=== PATIENT | female | born 1960 | race Caucasian/White ===

== ENCOUNTER 2023-12-21 01:35 | Day surgery (SDC) | payer MEDICARE, SELFPAY ==
--- NOTE | 2023-12-11 09:04 | PC.NURSE ---
Report to the Outpatient Waiting Room, entrance under the green pavilion located off [facility], at time __0845 on date _12/21/23 . Planned Procedure Time: __1045 . Time changes happen often and if your time is changed the preop area will call you the afternoon before. - You and your visitor will be asked to self-screen and do not enter if you have any COVID symptoms. - A mask is optional within the hospital at this time. Patients may have clear liquids (water, carbonated beverages, clear teas, apple juice) until 3 hours prior to surgery ( 0745)with a maximum of 20 ounces. - No food from midnight until time of surgery - Infants may have breast milk until 4 hours before surgery, infant formula 6 hours prior to surgery. - Children will be allowed to drink immediately following surgery. If applicable, please bring a bottle or sippy cup to assist with drinking. Juice, water, soda, and popsicles are readily available. For infants on formula, please bring formula the day of surgery. Pacifiers are allowed. Take the following medications with a SIP of water the morning of surgery: NONE DO NOT STOP ANY OF YOUR OTHER PRESCRIPTION MEDICATIONS PRIOR TO SURGERY ?EXCEPT THE FOLLOWING Medications to discontinue per physician ___HOLD RYBELSUS 10 DAYS PRE OP PER ANESTHESIA LAST DOSE 12/10/23 Please no make-up, nail romanian, hairspray, perfume, deodorant, or body powder the day of surgery. No jewelry (including any body piercings) or valuables the day of surgery, leave them at home. Please take a shower or bath the night before, or the morning of, surgery with an antibacterial soap. Wear comfortable, loose fitting clothing. Children are encouraged to wear pajamas. - Jewelry must be removed prior to entering the operating room. Rings and piercings that are not removed may be cut off. - The hospital will not accept responsibility for valuables. - Please leave all valuables, including medications, at home the day of surgery. If you are going home after surgery, a licensed motorcoach driver must drive you home. - NO public transportation without another adult if you receive anesthesia. - We recommend that an adult stay with you for 24 hours following discharge. - We also recommend that you do not drive, make important decision, drink alcoholic beverages, or take any drugs that were not prescribed by your health care provider for at least 24 hours after your discharge time. Follow any additional instructions given to you from your surgeon. If you or anyone in your household have experienced Covid symptoms in the past week, please notify your surgeon or the nurse liaison at the phone number below for possible testing. Telephone instructions given to __PATIENT and asked if any additional questions and then verbalized understanding. Patient advised to call surgeon office or pre surgery nurse liaison [phone] if any additional questions.
[2023-12-11 09:09] VITALS: BMI 33.6
[2023-12-21 09:18] VITALS: BP 138/68; PULSE 50; RESP 14; TEMP 36.6; O2SAT 100
--- NOTE | 2023-12-21 09:18 | P.HP_ITS ---
History of Present Illness History of Present Illness Consent: Risks, benefits, and alternatives have been discussed and questions answered. Patient agrees to proceed with procedure. Chief complaint: Post Menopausal Bleeding Narrative: Alanis Wagoner is a 63 year old female With several episodes of vaginal bleeding over the past 5 months. Pelvic ultrasound revealed a thickened endometrium 17mm. It was recommended to undergo D&C hysteroscopy for further ev aluation. Risks of infection, bleeding perforation, and possible pathology are discussed. The patient voices understanding and agrees to proceed. Review of Systems Review of Systems: not repeated day of surgery; patient states no changes in status PMFSH Past Medical History Medical History (Updated 12/21/23 @ 09:21 by Eliza Victor MD) Diabetes (normal spontaneous vaginal delivery) x3 Surgical History Surgical History (Updated 12/21/23 @ 09:21 by Eliza Victor MD) History of back surgery History of laparoscopic cholecystectomy Hx of left breast biopsy Social History Social History Smoking status: Never smoker Living arrangements: with family Spiritual care concerns: No Meds Home Medications and Allergies Home Medications Medication Instructions Recorded Confirmed Type oxybutynin chloride 10 mg 10 mg PO DAILY 12/11/23 12/11/23 History tablet,extended release 24 hr semaglutide 3 mg tablet (Rybelsus) 3 mg PO DAILY WEIGHT LOSS 12/11/23 12/11/23 History Allergies Allergy/AdvReac Type Severity Reaction Status Date / Time No Known Allergies Allergy Verified 12/21/23 08:45 Exam Const: General: healthy appearing and alert Orientation/consciousness: patient oriented x3 Resp: Effort & Inspection: normal respiratory effort GI: GI Palp: Yes Soft to palpation, No Tenderness to palpation present (GI) and No Palpable mass present : External Female Exam: normal external appearance Speculum Exam - Vagina: normal appearance of the vagina and normal vaginal discharge Speculum Exam - Cervix: normal appearance of the cervix Bimanual exam- vagina & uterus: uterine size normal and consistency normal Bimanual Exam- Adnexa, other: normal adnexae and No adnexal tenderness Neuro: General: patient oriented x3 Assessment and Plan Assessment and plan (1) Post-menopausal bleeding: Code(s): N95.0 - Postmenopausal bleeding Status: Acute Assessment and Plan: plan to proceed with D&C hysteroscopy
--- NOTE | 2023-12-21 09:18 | WPDHPUPDATE1 ---
History and Physical Update Update Date/Time: 12/21/23 09:18 History and Physical has been reviewed, including an updated exam of the patient. There are NO changes in the patient's condition. Risks, benefits, and alternatives have been discussed and questions answered. Patient agrees to proceed with procedure.
[2023-12-21] MEDS: ACETAMINOPHEN 500 MG TABLET 1000 MG PO (09:21)
[2023-12-21] MEDS: LACTATED RINGERS 1,000 ML 30 ML IV CONT ×2 (09:22→11:22)
--- NOTE | 2023-12-21 09:28 | P.PNAN_ITS ---
Anes - Initial Pre Proc Eval Procedure: Operation Date: 12/21/23 10:30 Proposed Procedures p Hysteroscopy Dilation and Curettage - Eliza Victor MD Date/Time: 12/21/23 09:28 Surgeon: Eliza Victor MD Pre Op Diagnosis: Post Menopausal Bleeding Patient Data Age: 63 Gender: F Height: 1.6 m Weight: 87.9 kg Last Vital Signs Temp 36.6 C 12/21/23 09:18 Pulse 50 L 12/21/23 09:18 Resp 14 12/21/23 09:18 BP 138/68 12/21/23 09:18 Pulse Ox 100 12/21/23 09:18 O2 Del Method Room Air 12/21/23 09:18 Allergies Allergy/AdvReac Type Severity Reaction Status Date / Time No Known Allergies Allergy Verified 12/21/23 08:45 Home Medications Medication Instructions Recorded Confirmed Type oxybutynin chloride 10 mg 10 mg PO DAILY 12/11/23 12/11/23 History tablet,extended release 24 hr semaglutide 3 mg tablet (Rybelsus) 3 mg PO DAILY WEIGHT LOSS 12/11/23 12/11/23 History Patient hx anesthesia problems: none Family hx anesthesia problems: none Results Review: All pre-operative results and documents have been reviewed as part of the pre- operative evaluation. PMFSH Past Medical History Medical History Diabetes (normal spontaneous vaginal delivery) x3 Surgical History Surgical History History of back surgery History of laparoscopic cholecystectomy Hx of left breast biopsy Social History Social History Smoking status: Never smoker Living arrangements: with family Spiritual care concerns: No Anes - Eval Final PreProcedure Day of Procedure 12/21/23 09:28 Patient weight: obese Heart: regular rate and rhythm Lungs: clear to auscultation Airway: Mallampati scale class II Neurological: alert and oriented Last oral intake: >/= 8 hours ASA classification: III Emergent: no Anesthetic plan: proceed Anesthesia type and monitoring: general GIVS and standard monitoring Results Review: All pre-operative results and documents have been reviewed as part of the pre- operative evaluation. Informed Consent: The patient's anesthetic plan and its attendant risks and benefits were discussed with the patient/family/POA. Questions were solicited and answers provided to the satisfaction of the patient/family/POA.
[2023-12-21 10:24] VITALS: BP 114/46; PULSE 57; RESP 16; O2SAT 95
--- NOTE | 2023-12-21 10:25 | W.PM.PROC2 ---
Procedure Note - Detailed Date of Procedure 12/21/23 Pre-op Diagnosis Post Menopausal Bleeding Post-op Diagnosis Same Procedure Performed D&C hysteroscopy with resection of multiple polyps Surgeon Eliza Victor MD Anesthesia MAC Findings uterus sounds to 8cm; multiple endometrial polyps are present Description of Procedure The patient is taken to the operating room and placed under anesthesia in the dorsal lithotomy position. She was prepped and draped in usual sterile fashion. Fraser speculum was placed in the vagina and the cervix grasped on the anterior lip with a tenaculum. The uterus is sounded to 8cm. The diagnostic hysteroscope was placed and with the multiple polyps encountered the Aveeta resection device is placed. Under direct visualization all polyps are removed in their entirety. Once the endometrium is visible, it appears grossly normal. The hysteroscope is removed. The OO sharp curette is used to curette the endometrium until a good uterine cry was noted in all areas. All instruments are removed. Sponge, needle, and instrument counts are correct per the OR staff. The patient was taken to recovery in stable condition. Estimated Blood Loss 5 Drains No Packing No Pathology Yes ( Endometrial shavings and curettings) Complications No immediate complications Disposition PACU
[2023-12-21 10:38] LABS: Glucose Point of Care 94 mg/dl (65-105)
[2023-12-21 10:50] VITALS: BP 132/62; PULSE 43; RESP 16; O2SAT 100
[2023-12-21 11:20] VITALS: BP 139/66; PULSE 43; RESP 16
--- NOTE | 2023-12-21 11:24 | SUR.PHASEII ---
PATIENT REPORTS LIGHT-HEADEDNESS. WILL CONTINUE TO GIVE IVF'S AND MONITOR.
--- NOTE | 2023-12-21 11:45 | SUR.PHASEII ---
PATIENT SHAKING, FEELING COLD; JAMESON HUGGER APPLIED. STILL C/O'ING LIGHTHEADEDNESS.
[2023-12-21 11:50] VITALS: BP 156/64; PULSE 45; RESP 20
[2023-12-21 12:05] VITALS: BP 140/59; PULSE 50; RESP 20
== END 2023-12-21 12:11 | disposition home or self-care (01) ==
PROVIDERS: Visit Provider Obstetrics & Gynecology Gynecology
PROC: 0U5B8ZZ Destruction of Endometrium, Via Natural or Artificial Opening Endoscopic (ICD-10-PCS; CPT 58563; principal; 2023-12-21 10:30)
DX: C54.1 Malignant neoplasm of endometrium (principal); E11.9 Type 2 diabetes mellitus without complications; Z98.1 Arthrodesis status; E66.9 Obesity, unspecified; Z68.34 Body mass index [BMI] 34.0-34.9, adult; Z90.49 Acquired absence of other specified parts of digestive tract
CPT/HCPCS: 58558; 82948; 88305; 88342; A9270; J2704; J3010; J7120